=== PATIENT | female | born 1990 | race Caucasian/White ===

== ENCOUNTER → 2016-06-22 | Outpatient (REF) | payer OTHER ==
[2016-06-22 18:05] LABS: CONTROL LINE HCG INT CTR LINE PRESENT
== END | disposition home or self-care (01) ==
LOC: M LAB REF 16:49
PROVIDERS: ATTEND Family Medicine
DX: N94.6 Dysmenorrhea, unspecified (principal)

== ENCOUNTER → 2017-08-05 | Outpatient (REF) | payer OTHER ==
[2017-08-05 18:00] LABS: RHEUMATOID FACTOR QUANT < 10.0 IU/ML (0-15.0)
[2017-08-05 19:01] LABS: TOTAL 25(OH) VITAMIN D 7.5 NG/ML (30.0-100.0)
[2017-08-09 00:07] LABS: ANTINUCLEAR ANTIBODIES DIRECT Negative (Negative)
== END ==
LOC: M LAB REF 16:42
DX: G44.001 Cluster headache syndrome, unspecified, intractable (principal)